=== PATIENT | male | born 1990 | race Caucasian/White ===

== ENCOUNTER 2017-01-26 01:42 | Emergency (ER) | payer OTHER ==
[~2017-01-26] VITALS: Ht 177.8 cm; Wt 129.5 kg
[~2017-01-26 01:42] MED LIST: ABILIFY; CELEXA PO; CEPHALEXIN500 M1 PO; CONCERTA PO; ESCITALOPRAM; FLEXERIL10 MG PO; INVEGA3 MG PO; LEXAPRO; LORTAB 5/500 501 TAB PO; MEDIDATE; NEXIUM 40MG40 MG PO; NORCO 325 MG-7.1 TAB PO; PRILOSEC 20MG20 MG PO; ZANTAC 300300 MG PO; ZYPREXA10 MG PO; [UNRECOGNIZED DRUG - OTHER]; [UNRECOGNIZED DRUG - OTHER]; [UNRECOGNIZED DRUG - OTHER]
[2017-01-26 01:45] VITALS: TEMP 97.9
[2017-01-26] MEDS ORDERED: CYMBALTA 20MG20 MG PO (01:51)
[2017-01-26] MEDS ORDERED: VISTARIL 2525 MG/CAP (01:51)
[2017-01-26] MEDS ORDERED: ATARAX 25MG25 MG/TAB PO (01:52)
[2017-01-26] MEDS ORDERED: DESYREL 50MG50 MG PO (01:52)
[2017-01-26 02:10] LABS: BASO % 0.2 % (0.0-2.0); EOS # 0.2 (0.0-0.7); EOS % 1.5 % (0-4.0); GRAN # 5.4 (1.4-6.5); GRAN % 54.4 % (42.2-75.2); HEMATOCRIT 41.4 % (42.0-52.0); LYMPH # 3.7 (1.2-3.4); LYMPH % 36.9 % (20.0-51.0); MEAN CELL VOLUME 92 fl (80.0-100.0); MEAN CORPUSCULAR HEMOGLOBIN 31 pg (27.0-31.0); MEAN CORPUSCULAR HGB CONC 34 g/dl (33.0-37.0); MEAN PLATELET VOLUME 9.9 fl (7.4-10.4); MONO # 0.7 (0.1-0.6); MONO % 6.7 % (1.7-9.3); PLATELET COUNT 226 K/mm3 (130-400); RED BLOOD COUNT 4.52 M/mm3 (4.20-5.60); REDCELL DISTRIBUTION WIDTH-CV 12.8 % (11.5-14.5); WHITE BLOOD COUNT 9.9 K/mm3 (4.8-10.8)
[2017-01-26 02:25] LABS: ADJUSTED CALCIUM 9.1 mg/dL (8.4-10.2); ALANINE AMINOTRANSFERASE 25 U/L (21-72); ALBUMIN 4.4 gm/dL (3.5-5.0); ALKALINE PHOSPHATASE 79 U/L (50-136); ANION GAP 10 mmol/L (7-16); BILIRUBIN,TOTAL 0.4 mg/dL (0.0-1.0); BLOOD UREA NITROGEN 12 mg/dL (9-20); CALCIUM 9.4 mg/dL (8.4-10.2); CARBON DIOXIDE 24 mmol/L (22-30); CHLORIDE 103 mmol/L (98-107); CREATININE, serum 0.84 mg/dL (0.66-1.25); GLUCOSE 111 mg/dL (74-106); POTASSIUM 3.2 mmol/L (3.4-5.0); SODIUM 137 mmol/L (137-145); TOTAL PROTEIN 7.2 gm/dL (6.4-8.2)
[2017-01-26 02:35] LABS: ACETAMINOPHEN < 10 ug/mL (10-30); SALICYLATE < 1.0 mg/dL
[2017-01-26 02:36] LABS: AMPHETAMINE URINE NEGATIVE; BARBITURATES URINE NEGATIVE; BENZODIAZEPINES URINE NEGATIVE; BUPRENORPHINE URINE NEGATIVE; METHADONE URINE NEGATIVE; OPIATES URINE NEGATIVE; OXYCODONE URINE NEGATIVE; PHENCYCLIDINE URINE NEGATIVE; PROPOXYPHENE URINE NEGATIVE; THC CANNABINOIDS URINE POSITIVE
[2017-01-26 04:30] VITALS: BP 127/64; PULSE 56
== END 2017-01-26 04:30 | disposition home or self-care (01) ==
LOC: COL.ER 01:42
PROVIDERS: Physician Assistant
DX: R45.851 Suicidal ideations (principal); F32.9 Major depressive disorder, single episode, unspecified; F41.9 Anxiety disorder, unspecified

== ENCOUNTER 2017-10-12 10:54 | Emergency (ER) | payer OTHER ==
[~2017-10-12] VITALS: Ht 177.8 cm; Wt 116.4 kg
[~2017-10-12 10:54] MED LIST changes: +ATARAX 25MG25 MG/TAB PO; +CYMBALTA 20MG20 MG PO; +DESYREL 50MG50 MG PO; +VISTARIL 2525 MG/CAP
[2017-10-12 10:55] VITALS: TEMP 97.6
[2017-10-12 14:08] VITALS: BP 118/65; PULSE 60
== END 2017-10-12 14:09 | disposition home or self-care (01) ==
LOC: COL.ER 10:54
DX: N48.30 Priapism, unspecified (principal); F17.210 Nicotine dependence, cigarettes, uncomplicated
CPT/HCPCS: J2370; J3010; J7030

== ENCOUNTER 2017-12-01 16:24 | Emergency (ER) | payer OTHER ==
[~2017-12-01] VITALS: Ht 177.8 cm; Wt 108.2 kg
[2017-12-01 17:48] VITALS: BP 118/58; PULSE 69; TEMP 98.3
== END 2017-12-01 17:50 | disposition home or self-care (01) ==
LOC: COL.ER 16:24
DX: N48.30 Priapism, unspecified (principal); F32.9 Major depressive disorder, single episode, unspecified; F41.9 Anxiety disorder, unspecified; F90.9 Attention-deficit hyperactivity disorder, unspecified type; Z90.89 Acquired absence of other organs; F17.210 Nicotine dependence, cigarettes, uncomplicated; F12.90 Cannabis use, unspecified, uncomplicated

== ENCOUNTER 2018-05-12 09:22 | Emergency (ER) | payer SELFPAY ==
[~2018-05-12] VITALS: Ht 177.8 cm; Wt 104.5 kg
[2018-05-12 09:28] VITALS: TEMP 97.1
[2018-05-12 13:13] VITALS: BP 117/75; PULSE 60
== END 2018-05-12 13:13 | disposition home or self-care (01) ==
LOC: COL.ER 09:22
DX: N48.30 Priapism, unspecified (principal); F17.210 Nicotine dependence, cigarettes, uncomplicated
CPT/HCPCS: J1170; J2405

== ENCOUNTER 2018-08-09 13:01 | Emergency (ER) | payer SELFPAY ==
[~2018-08-09] VITALS: Ht 177.8 cm; Wt 104.5 kg
[2018-08-09 13:17] VITALS: TEMP 99
[2018-08-09 14:12] LABS: BASO % 0.2 % (0.0-2.0); EOS % 0.5 % (0-4.0); GRAN # 5.4 (1.4-6.5); GRAN % 64.7 % (42.2-75.2); HEMATOCRIT 40.2 % (42.0-52.0); HEMOGLOBIN 13.8 g/dl (13.5-18.0); LYMPH # 2.3 (1.2-3.4); LYMPH % 27.2 % (20.0-51.0); MEAN CELL VOLUME 93 fl (80.0-100.0); MEAN CORPUSCULAR HEMOGLOBIN 32 pg (27.0-31.0); MEAN CORPUSCULAR HGB CONC 34 g/dl (33.0-37.0); MEAN PLATELET VOLUME 10.2 fl (7.4-10.4); MONO # 0.6 (0.1-0.6); MONO % 7.2 % (1.7-9.3); PLATELET COUNT 230 K/mm3 (130-400); RED BLOOD COUNT 4.34 M/mm3 (4.20-5.60); REDCELL DISTRIBUTION WIDTH-CV 12.7 % (11.5-14.5)
[2018-08-09 14:23] LABS: ALANINE AMINOTRANSFERASE 22 U/L (21-72); ALBUMIN 3.9 gm/dL (3.5-5.0); ALKALINE PHOSPHATASE 64 U/L (50-136); ANION GAP 6 mmol/L (7-16); AST,SGOT 17 U/L (15-37); BILIRUBIN,TOTAL 0.3 mg/dL (0.0-1.0); BLOOD UREA NITROGEN 11 mg/dL (9-20); CALCIUM 9.1 mg/dL (8.4-10.2); CARBON DIOXIDE 28 mmol/L (22-30); CHLORIDE 107 mmol/L (98-107); CREATININE, serum 0.71 mg/dL (0.66-1.25); GLUCOSE 88 mg/dL (74-106); POTASSIUM 3.6 mmol/L (3.4-5.0); SODIUM 140 mmol/L (137-145); TOTAL PROTEIN 6.4 gm/dL (6.4-8.2)
[2018-08-09 14:25] LABS: ACETAMINOPHEN < 10 ug/mL (10-30); ALCOHOL(ethanol),MEDICAL < 10 mg/dL; SALICYLATE < 1.0 mg/dL
[2018-08-09 14:33] LABS: COLLECTION METHOD CLEAN CATCH
[2018-08-09 14:38] LABS: THYROXINE (T4)-TOTAL 7.4 ug/dL (5.5-11.0)
[2018-08-09 14:43] LABS: MUCOUS Present /lpf; PH 6 (5-8); URINE APPEARANCE Hazy; URINE BACTERIA None Seen /hpf; URINE BILIRUBIN Negative (NEGATIVE); URINE BLOOD Negative (NEGATIVE); URINE COLOR Yellow; URINE GLUCOSE Negative (NEGATIVE); URINE KETONE Trace (NEGATIVE); URINE LEUKOCYTE ESTERASE Negative (NEGATIVE); URINE NITRATE Negative (NEGATIVE); URINE PROTEIN(semi-quant) Negative (NEGATIVE); URINE RBC 0-2 /hpf
[2018-08-09 14:49] LABS: TRICYCLIC ANTIDEPRESS URINE NEGATIVE
[2018-08-09 17:08] VITALS: BP 142/71; PULSE 56
== END 2018-08-09 17:08 | disposition home or self-care (01) ==
LOC: COL.ER 13:01
PROVIDERS: Physician Assistant
DX: F32.9 Major depressive disorder, single episode, unspecified (principal); F41.9 Anxiety disorder, unspecified; F17.210 Nicotine dependence, cigarettes, uncomplicated; F12.90 Cannabis use, unspecified, uncomplicated

== ENCOUNTER 2018-09-03 07:02 | Emergency (ER) | payer SELFPAY ==
[~2018-09-03] VITALS: Ht 177.8 cm; Wt 100.0 kg
[2018-09-03 07:04] VITALS: TEMP 97.7
[2018-09-03 11:34] VITALS: BP 100/60; PULSE 60
== END 2018-09-03 12:21 | disposition home or self-care (01) ==
LOC: COL.ER 07:02
DX: N48.30 Priapism, unspecified (principal); F17.210 Nicotine dependence, cigarettes, uncomplicated
CPT/HCPCS: J2270; J2550

== ENCOUNTER 2018-12-27 12:29 | Emergency (ER) | payer SELFPAY ==
[~2018-12-27] VITALS: Ht 177.8 cm; Wt 100.0 kg
[2018-12-27 12:34] VITALS: TEMP 98.2
[2018-12-27] MEDS ORDERED: REXULTI4 MG PO (12:35)
[2018-12-27] MEDS ORDERED: AMBIEN 10MG10 MG PO (12:44)
[2018-12-27] MEDS ORDERED: NORCO 325 MG-51 TAB PO (15:26)
[2018-12-27 16:08] VITALS: BP 109/63; PULSE 65
== END 2018-12-27 16:10 | disposition home or self-care (01) ==
LOC: COL.ER 12:29
DX: N48.30 Priapism, unspecified (principal); F12.90 Cannabis use, unspecified, uncomplicated
CPT/HCPCS: A4216; J0696; J1170; J2370

== ENCOUNTER 2019-01-09 09:14 | Emergency (ER) | payer SELFPAY ==
[~2019-01-09] VITALS: Ht 177.8 cm; Wt 100.0 kg
[~2019-01-09 09:14] MED LIST changes: +AMBIEN 10MG10 MG PO; +NORCO 325 MG-51 TAB PO; +REXULTI4 MG PO
[2019-01-09 11:40] VITALS: BP 120/76; PULSE 69; TEMP 98.1
== END 2019-01-09 11:41 | disposition home or self-care (01) ==
LOC: COL.ER 09:14
DX: N48.30 Priapism, unspecified (principal); F17.210 Nicotine dependence, cigarettes, uncomplicated; F12.90 Cannabis use, unspecified, uncomplicated; Z90.49 Acquired absence of other specified parts of digestive tract
CPT/HCPCS: J2370

== ENCOUNTER 2019-01-15 06:58 | Emergency (ER) | payer SELFPAY ==
[~2019-01-15] VITALS: Ht 177.8 cm; Wt 100.0 kg
[2019-01-15 09:30] VITALS: BP 126/80; PULSE 63; TEMP 97.6
== END 2019-01-15 09:30 | disposition home or self-care (01) ==
LOC: COL.ER 06:58
DX: N48.30 Priapism, unspecified (principal); F17.210 Nicotine dependence, cigarettes, uncomplicated
CPT/HCPCS: J2370

== ENCOUNTER 2019-03-02 08:36 | Emergency (ER) | payer MEDICAID ==
[~2019-03-02] VITALS: Ht 177.8 cm; Wt 100.0 kg
[2019-03-02 08:39] VITALS: TEMP 98.2
[2019-03-02 10:36] LABS: COLLECTION METHOD CLEAN CATCH
[2019-03-02 10:47] LABS: MUCOUS Present /lpf; PH 5 (5-8); SQUAMOUS EPITHELIAL 0-2 /hpf; URINE APPEARANCE Hazy; URINE BACTERIA None Seen /hpf; URINE BILIRUBIN Negative (NEGATIVE); URINE BLOOD Negative (NEGATIVE); URINE COLOR Yellow; URINE GLUCOSE Negative (NEGATIVE); URINE KETONE Negative (NEGATIVE); URINE LEUKOCYTE ESTERASE 3+ (NEGATIVE); URINE NITRATE Negative (NEGATIVE); URINE PROTEIN(semi-quant) Negative (NEGATIVE); URINE RBC 20-50 /hpf; URINE UROBILINOGEN Negative (NEGATIVE)
[2019-03-02 10:49] VITALS: BP 111/64; PULSE 65
[2019-03-02] MEDS ORDERED: CEPHALEXIN500 M1 PO (14:30)
== END 2019-03-02 10:50 | disposition home or self-care (01) ==
LOC: COL.ER 08:36
PROVIDERS: Emergency Medicine
DX: N48.30 Priapism, unspecified (principal)
CPT/HCPCS: J1885; J2370

== ENCOUNTER 2019-04-06 07:29 | Emergency (ER) | payer MEDICAID ==
[~2019-04-06] VITALS: Ht 177.8 cm; Wt 100.0 kg
[2019-04-06 07:33] VITALS: BP 123/70
[2019-04-06 09:23] VITALS: PULSE 65; TEMP 98
== END 2019-04-06 09:40 | disposition home or self-care (01) ==
LOC: COL.ER 07:29
DX: N48.30 Priapism, unspecified (principal); F17.210 Nicotine dependence, cigarettes, uncomplicated
CPT/HCPCS: J2370

== ENCOUNTER 2019-05-16 13:14 | Emergency (ER) | payer MEDICAID ==
[~2019-05-16] VITALS: Ht 177.8 cm; Wt 100.0 kg
[2019-05-16 13:43] VITALS: BP 116/57; TEMP 98.3
[2019-05-16] MEDS ORDERED: AMOXICILLIN 50500 MG PO (15:26)
[2019-05-16 15:38] VITALS: PULSE 78
== END 2019-05-16 15:38 | disposition home or self-care (01) ==
LOC: COL.ER 13:14
DX: H66.91 Otitis media, unspecified, right ear (principal); F41.9 Anxiety disorder, unspecified

== ENCOUNTER 2019-07-07 05:56 | Emergency (ER) | payer MEDICAID ==
[~2019-07-07] VITALS: Ht 177.8 cm; Wt 102.3 kg
[~2019-07-07 05:56] MED LIST changes: +AMOXICILLIN 50500 MG PO
[2019-07-07 06:00] VITALS: TEMP 97.3
[2019-07-07] MEDS ORDERED: INDERAL40 MG PO (06:03)
[2019-07-07] MEDS ORDERED: AMBIEN 10MG10 MG PO (06:03)
[2019-07-07 07:25] VITALS: BP 114/78; PULSE 68
== END 2019-07-07 07:32 | disposition home or self-care (01) ==
LOC: COL.ER 05:56
DX: N48.30 Priapism, unspecified (principal); F17.210 Nicotine dependence, cigarettes, uncomplicated
CPT/HCPCS: J2370

== ENCOUNTER 2019-09-12 14:09 | Emergency (ER) | payer MEDICAID ==
[~2019-09-12] VITALS: Ht 177.8 cm; Wt 90.9 kg
[~2019-09-12 14:09] MED LIST changes: +INDERAL40 MG PO
[2019-09-12 14:17] VITALS: BP 111/60
[2019-09-12 15:09] LABS: STREP SCREEN NEGATIVE
[2019-09-12 15:30] VITALS: PULSE 82; TEMP 98.3
== END 2019-09-12 15:30 | disposition home or self-care (01) ==
LOC: COL.ER 14:09
PROVIDERS: Physician Assistant
DX: J02.9 Acute pharyngitis, unspecified (principal)

== ENCOUNTER 2019-11-10 09:34 | Emergency (ER) | payer MEDICAID ==
[~2019-11-10] VITALS: Ht 177.8 cm; Wt 90.9 kg
[2019-11-10 09:40] VITALS: BP 119/58; PULSE 85; TEMP 97.8
[2019-11-10] MEDS ORDERED: AMITRIPTYLINE H10 M1 (09:58)
[2019-11-10] MEDS ORDERED: ANXIETY MEDICATION PO (10:03)
== END 2019-11-10 11:10 | disposition home or self-care (01) ==
LOC: COL.ER 09:34
DX: N48.39 Other priapism (principal); F32.9 Major depressive disorder, single episode, unspecified; F41.9 Anxiety disorder, unspecified; F17.210 Nicotine dependence, cigarettes, uncomplicated; Z90.89 Acquired absence of other organs
CPT/HCPCS: J2370

== ENCOUNTER 2019-12-20 10:25 | Emergency (ER) | payer MEDICAID, BC ==
[~2019-12-20] VITALS: Ht 177.8 cm; Wt 91.8 kg
[~2019-12-20 10:25] MED LIST changes: +AMITRIPTYLINE H10 M1; +ANXIETY MEDICATION PO
[2019-12-20 10:46] VITALS: BP 108/69; PULSE 85; TEMP 97.8
[2019-12-20 11:45] LABS: BASO % 0.7 % (0.0-2.0); EOS # 0.1 (0.0-0.7); GRAN # 3.2 (1.4-6.5); GRAN % 55.1 % (42.2-75.2); HEMATOCRIT 42.5 % (42.0-52.0); HEMOGLOBIN 14.6 g/dl (13.5-18.0); LYMPH # 1.7 (1.2-3.4); LYMPH % 29.7 % (20.0-51.0); MEAN CELL VOLUME 92 fl (80.0-100.0); MEAN CORPUSCULAR HEMOGLOBIN 32 pg (27.0-31.0); MEAN CORPUSCULAR HGB CONC 34 g/dl (33.0-37.0); MEAN PLATELET VOLUME 11.4 fl (7.4-10.4); MONO # 0.8 (0.1-0.6); PLATELET COUNT 171 K/mm3 (130-400); RED BLOOD COUNT 4.62 M/mm3 (4.20-5.60); REDCELL DISTRIBUTION WIDTH-CV 12.4 % (11.5-14.5)
[2019-12-20 12:03] LABS: ALBUMIN 4.2 gm/dL (3.5-5.0); BILIRUBIN,TOTAL 0.4 mg/dL (0.0-1.0); C-REACTIVE PROTEIN 2.5 mg/dL (0.0-0.9); CALCIUM 9.3 mg/dL (8.4-10.2); CREATININE, serum 0.78 (0.66-1.25); POTASSIUM 3.9 mmol/L (3.4-5.0); TOTAL PROTEIN 7.2 gm/dL (6.4-8.2)
[2019-12-20] MEDS ORDERED: PROTONIX 40MG T40 MG PO (15:20)
[2019-12-20] MEDS ORDERED: CARAFATE 1GM1 G PO (15:20)
[2019-12-20] MEDS ORDERED: PHENERGAN 25 TA25 MG PO (15:21)
== END 2019-12-20 15:25 | disposition home or self-care (01) ==
LOC: COL.ER 10:25
PROVIDERS: Emergency Medicine
DX: K29.70 Gastritis, unspecified, without bleeding (principal); Z87.438 Personal history of other diseases of male genital organs
CPT/HCPCS: C9113; J2405; J7030